=== PATIENT | male | born 1985 | race Caucasian/White ===

== ENCOUNTER → 2017-09-13 | Outpatient (CLI) | payer OTHER ==
[~2017-09-13] MED LIST: Bactrim Ds Tab1 EACH PO; DULO60 PO; HYDACE5 PO; Keflex500 MG PO; LORA2 PO; METH10 PO; MOVANTIK25 MG PO; OXYACE5T PO; PARO20 PO; PROC10 PO; RXHYDACE PO
[2017-09-15 17:37] LABS: MDA Not Detected (NOTDET); MDEA Not Detected (NOTDET); MDMA Not Detected (NOTDET)
== END ==
LOC: LAB SRC 15:26
PROVIDERS: Physician Assistant
DX: F11.20 Opioid dependence, uncomplicated (principal)
CPT/HCPCS: G0480

== ENCOUNTER 2024-01-08 08:20 | Emergency (ER) | payer OTHER ==
[~2024-01-08] VITALS: Ht 190.5 cm; Wt 97.5 kg
[~2024-01-08 08:20] MED LIST changes: +Cephalexin500 M1 PO; +SULTRIDS PO
[2024-01-08 08:34] VITALS: BP 145/99
[2024-01-08] MEDS ORDERED: TERBINAFINE HCL TOP (08:40)
[2024-01-08] MEDS ORDERED: TERB250 PO (08:40)
== END 2024-01-08 08:36 | disposition home or self-care (01) ==
LOC: ER 08:20
DX: B35.3 Tinea pedis (principal); F17.210 Nicotine dependence, cigarettes, uncomplicated
CPT/HCPCS: 99282